=== PATIENT | female | born 1975 | race Caucasian/White ===

== ENCOUNTER 2020-10-06 18:09 | Emergency (ER) | payer OTHER ==
[~2020-10-06] VITALS: Ht 165.1 cm; Wt 96.3 kg
[~2020-10-06 18:09] MED LIST: DOCU-131 PO; FERR325T18 PO; IBUP200T49 PO; NORE-58 PO; OXYC1TAB14 PO
[2020-10-06 21:14] LABS: BASOPHILS % (AUTO) 1 % (0-1); EOSINOPHILS % (AUTO) 1 % (1-7); LYMPHOCYTES % (AUTO) 34 % (22-44); MEAN CORPUSCULAR HEMOGLOBIN 30.8 pg (27.0-34.8); MEAN CORPUSCULAR HGB CONC 33.8 g/dL (32.4-35.8); MEAN PLATELET VOLUME 8.1 fL (7.4-10.4); MONOCYTES % (AUTO) 7 % (2-9); NEUTROPHILS % (AUTO) 58 % (42-75); PLATELET COUNT 223 x10^3/uL (130-400); RED BLOOD COUNT 4.24 x10^6/uL (3.82-5.3); RED CELL DISTRIBUTION WIDTH 13.9 % (9.6-15.2)
[2020-10-06 21:20] LABS: MD NO
[2020-10-06 21:27] LABS: ALBUMIN 3.7 g/dL (3.4-5.0); ANION GAP 7 mmol/L (5-15); CALCIUM 8.4 mg/dL (8.5-10.1); CHLORIDE 108 mmol/L (98-107)
[2020-10-06 21:33] LABS: ALANINE AMINOTRANSFERASE 36 U/L (12-78); ALKALINE PHOSPHATASE 100 U/L (45-117); BILIRUBIN,TOTAL 0.4 mg/dL (0.2-1.0); CREATININE 0.89 mg/dL (0.55-1.02); TOTAL PROTEIN 6.9 g/dL (6.4-8.2)
[2020-10-06 22:32] VITALS: BP 129/82
== END 2020-10-06 22:54 | disposition home or self-care (01) ==
LOC: ED 18:39
DX: S01.511A Laceration without foreign body of lip, initial encounter (principal); S16.1XXA Strain of muscle, fascia and tendon at neck level, initial encounter; S40.022A Contusion of left upper arm, initial encounter; G89.11 Acute pain due to trauma; M54.6 Pain in thoracic spine; M54.2 Cervicalgia; E03.9 Hypothyroidism, unspecified; E78.5 Hyperlipidemia, unspecified; R51.9 Headache, unspecified; R55 Syncope and collapse; X58.XXXA Exposure to other specified factors, initial encounter; Y93.89 Activity, other specified; Y92.89 Other specified places as the place of occurrence of the external cause; Y99.8 Other external cause status
CPT/HCPCS: 36415; 70450; 70486; 72072; 72125; 80053; 85025; 93005; 99285